=== PATIENT | female | born 1945 ===

== ENCOUNTER 2016-07-28 08:18 | Outpatient (CLI) | payer MEDICARE ==
--- NOTE | 2016-07-28 10:07 | Mammography Report ---
BONE DEXA:07/28/16 08:18:00 CLINICAL: Postmenopausal. COMPARISON: 07/27/14 TECHNIQUE: Two site bone DEXA performed on an Hologic scanner. FINDINGS: The average BMD of the lumbar spine L1-L4 is 0.876g/cm squared with a T-score of -1.6 and a Z-score of +0.7. This compares to 0.812g/cm squared on the last exam and represents a +7.9% change from the previous baseline. The average BMD of the left hip is 0.874g/cm squared with a T-score of -0.6 and a Z-score of +1.1. This compares to 0.907g/cm squared on the last exam and represents a -3.6% change from the previous baseline. IMPRESSION: 1. WHO classification: Osteopenia with increased fracture risk based on spine measurements. A moderate increase in spine BMD compared to the prior exam. 2. WHO classification: Normal with average fracture risk based on left hip measurements. A modest decline in left hip BMD compared to the prior exam. RECOMMENDATION: Clinical correlation and routine screening. DEFINITIONS: BMD = Bone Mineral Density T-score = BMD related to mean peak bone mass of young adult (mean expressed in Standard Deviation) Z-score = Age matched BMD expressed in SD World Health Organization (WHO) Diagnostic Criteria Normal T-score > -1 SD Osteopenia T-score between -1 and -2.4 SD Osteoporosis T-score -2.5 SD or below NOTE: BMD is not the only risk factor for fracture; also consider factors such as the patient's age, risk of falling, previous osteoporotic fracture, family history of osteoporotic fractures, current smoker, and low body weight. Z-scores are not calculated if >80 years of age.
== END 2016-07-28 08:19 | disposition home or self-care (01) ==
LOC: SPVWC 08:18
PROVIDERS: ATTEND Specialist
DX: M85.89 Other specified disorders of bone density and structure, multiple sites (principal); N95.9 Unspecified menopausal and perimenopausal disorder
CPT/HCPCS: 77080